=== PATIENT | female | born 1955 | race Caucasian/White ===

== ENCOUNTER → 2020-06-15 14:47 | Outpatient (CLI) | payer MEDICARE, OTHER, SELFPAY ==
--- NOTE | ~2020-06-15 | MM_ITS ---
EXAMINATION: MM screening radha BI w brian HISTORY: Screening mammogram TECHNIQUE: Craniocaudal and mediolateral oblique 3-D tomosynthesis images were obtained and synthetic 2-D images were generated. CAD analysis was submitted and interpreted. COMPARISON: 04/08/2019, 03/24/2018, 11/19/2016 bilateral digital screening mammogram examinations BREAST PARENCHYMAL COMPOSITION: There are scattered areas of fibroglandular density. FINDINGS: There is no evidence of suspicious mass, calcification, or architectural distortion to sugg est malignancy in either breast. There has been no suspicious interval change. IMPRESSION: 1. No mammographic evidence of malignancy. 2. Recommend routine screening mammography in one year. BI-RADS Category 1: Negative Reviewed, dictated and finalized at location A.
== END ==
PROVIDERS: PCP Family Medicine; Visit Provider Family Medicine
DX: Z12.31 Encounter for screening mammogram for malignant neoplasm of breast (principal)
CPT/HCPCS: 77063; 77067

== ENCOUNTER → 2020-06-28 09:45 | Outpatient (CLI) | payer MEDICARE, OTHER, SELFPAY ==
--- NOTE | ~2020-06-28 | XR_ITS ---
EXAMINATION: XR lumbar spine 2-3V EXAM DATE: 06/28/2020 10:13 INDICATION: Low back pain . TECHNIQUE: Lumber spine frontal, lateral, lateral L5-S1 projections for interpretation. There is no prior study for comparison. FINDINGS: There is 4 mm retrolisthesis L4 on L5, 3 mm retrolisthesis L3 on L4. There is mild to mode rate disc disease L1-L5, moderate at L5-S1. There is mild to moderate lower lumbar facet arthropathy. Sacrum, sacroiliac joints, sacral arcuate lines are intact. Some pelvic surgical clips. There are ch olecystectomy clips. Mild diffuse loss of vertebral body heights. Mild thoracolumbar curvature. IMPRESSION: Mild to moderate lumbar spondylosis. Reviewed, dictated and finalized at location B. EDURAL NURSE
== END ==
PROVIDERS: PCP Family Medicine; Visit Provider Family Medicine
DX: M47.816 Spondylosis without myelopathy or radiculopathy, lumbar region (principal)
CPT/HCPCS: 72100

== ENCOUNTER → 2021-02-27 16:09 | Outpatient (CLI) | payer MEDICARE, OTHER, SELFPAY ==
--- NOTE | ~2021-02-27 | XR_ITS ---
XR hand RT min 3V 02/27/2021 16:45 Indication: Right hand pain Procedure: 3 views right hand Comparison: 04/17/2015 Findings: There is moderate-severe polyarticular osteoarthritis of the interphalangeal joints and to a lesser degree the first MCP joint. No fracture or traumatic malalignment. The degenerative changes have progressed in the distal interphalangeal joints. Foreign bodies. 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 Reviewed, dictated and finalized at location A. Impression: 1: Progression of moderate-severe polyarticular osteoarthritis of the right rodríguez d, most advanced in the interphalangeal joints.
--- NOTE | ~2021-02-27 | XR_ITS ---
XR hand LT min 3V 02/27/2021 16:45 Indication: Left hand pain Procedure: 3 views left hand Comparison: No prior studies for comparison. Findings: There is moderate-severe polyarticular osteoarthritis primarily involving the interphalange al joints and to a lesser degree the first CMC and MCP joints. No acute fracture or traumatic malalig nment. No significant soft tissue abnormality. Impression: 1: Moderate-severe polyarticular osteoarthritis of the left hand. Reviewed, dictated and finalized at location A. Impression: 1: Moderate-severe polyarticular osteoarthritis of the left hand.
== END ==
PROVIDERS: PCP Physician Assistant; Visit Provider Physician Assistant
DX: M19.042 Primary osteoarthritis, left hand (principal); M19.041 Primary osteoarthritis, right hand
CPT/HCPCS: 73130

== ENCOUNTER 2021-05-11 01:58 | Day surgery (SDC) | payer MEDICARE, OTHER, SELFPAY ==
[2021-04-26 14:48] VITALS: BMI 27.8
[2021-05-11 07:45] VITALS: BP 132/68; PULSE 78; RESP 16; TEMP 36.1; O2SAT 100
[2021-05-11] MEDS: LACTATED RINGERS 1,000 ML 150 ML IV CONT (07:54)
--- NOTE | 2021-05-11 08:23 | WPDANESEPPF ---
Anes - Initial Pre Proc Eval Procedure: Operation Date: 05/11/21 08:30 Proposed Procedures p Colonoscopy - Michael Javier MD Date/Time: 05/11/21 08:23 Surgeon: Michael Javier MD Pre Op Diagnosis: change in bowel habits R19.4 Patient Data Age: 65 Gender: F Height: 1.57 m Weight: 69.3 kg Last Vital Signs Temp 96.9 F L 05/11/21 07:45 Pulse 78 05/11/21 07:45 Resp 16 05/11/21 07:45 BP 132/68 05/11/21 07:45 Pulse Ox 100 05/11/21 07:45 Allergies Allergy/AdvReac Type Severity Reaction Status Date / Time Penicillins Allergy Unknown Rash Verified 05/11/21 07:43 Home Medications Medication Instructions Recorded Confirmed Type omeprazole 20 mg capsule,delayed 20 mg PO DAILY #90 cap 01/03/20 05/11/21 Rx release travoprost 0.004 % eye drops 1 drop EACH EYE QPM #5 ml 01/03/20 05/11/21 Rx hydrochlorothiazide 12.5 mg tablet 12.5 mg PO DAILY #30 tablet 03/14/21 05/11/21 Rx alprazolam 0.25 mg tablet 0.25 mg PO DAILY PRN #15 tablet 04/11/21 05/11/21 Rx dorzolamide 1 drop EACH EYE BID 04/26/21 05/11/21 History irbesartan 150 mg PO DAILY 04/26/21 05/11/21 History sertraline 25 mg PO DAILY 04/26/21 05/11/21 History Patient hx anesthesia problems: none Family hx anesthesia problems: none PMFSH Past Medical History Medical History Alternating constipation and diarrhea CKD (chronic kidney disease), stage III Family history of melanoma Hypertensive chronic kidney disease with stage 1 through stage 4 chronic kidney disease, or unspecified chronic kidney disease Low kidney function Rectal bleeding Rectal pressure Skin lesions Social History Social History (Updated 04/24/21 @ 16:13 by Ramila Michele MA) Smoking status: Never smoker Second hand tobacco smoke exposure: No Alcohol intake: never Substance use: never Substance use type: does not use Living arrangements: with family Gender identity (if verbalized by the patient): Female Spiritual care concerns: No Anes - Eval Final PreProcedure Day of Procedure 05/11/21 08:23 Patient weight: overweight Heart: regular rate and rhythm Lungs: rales Airway: Mallampati scale class II Neurological: alert and oriented Last oral intake: >/= 8 hours ASA classification: III Emergent: no Anesthetic plan: proceed Anesthesia type and monitoring: general GIVS and standard monitoring Informed Consent: The patient's anesthetic plan and its attendant risks and benefits were discussed with the patient/family/POA. Questions were solicited and answers provided to the satisfaction of the patient/family/POA.
--- NOTE | 2021-05-11 08:33 | PM.HPGS ---
History of Present Illness History of Present Illness Consent: Risks, benefits, and alternatives have been discussed and questions answered. Patient agrees to proceed with procedure. Chief complaint: change in bowel habits R19.4 Narrative: Bernice Duque is a 65 year old female with alternating constipation and diarrhea, also rectal pressure (remote h/o rectocele repair), last colonoscopy 2017 Review of Systems Constitutional: Constitutional: Denies headache(s) and Denies weakness Eyes: Eyes: Denies blurry vision ENT: Reports Normal hearing present, Denies headache(s) and Denies neck pain Cardiovascular: Cardiovascular: Denies chest pain and Denies dyspnea Respiratory: Respiratory: Denies dyspnea Gastrointestinal: Gastrointestinal: Reports no additional gastrointestinal complaints Genitourinary: Genitourinary: Denies dysuria Musculoskeletal: Musculoskeletal: Denies neck pain Integumentary/Breasts: Skin/Breast: Denies dry skin Neurologic: Reports Normal hearing present, Denies headache(s) and Denies weakness Psychiatric: Psychiatric: Denies anxiety Endocrine: Endocrine: Denies change in body appearance Hematologic/Lymphatic: Hematologic/Lymphatic: Denies easy bleeding Allergic/Immunologic: Allergic/Immunologic: Denies urticaria PMFSH Past Medical History Medical History Alternating constipation and diarrhea CKD (chronic kidney disease), stage III Family history of melanoma Hypertensive chronic kidney disease with stage 1 through stage 4 chronic kidney disease, or unspecified chronic kidney disease Low kidney function Rectal bleeding Rectal pressure Skin lesions Social History Social History (Updated 04/24/21 @ 16:13 by Ramila Michele MA) Smoking status: Never smoker Second hand tobacco smoke exposure: No Alcohol intake: never Substance use: never Substance use type: does not use Living arrangements: with family Gender identity (if verbalized by the patient): Female Spiritual care concerns: No Meds Home Medications and Allergies Home Medications Medication Instructions Recorded Confirmed Type omeprazole 20 mg capsule,delayed 20 mg PO DAILY #90 cap 01/03/20 05/11/21 Rx release travoprost 0.004 % eye drops 1 drop EACH EYE QPM #5 ml 01/03/20 05/11/21 Rx hydrochlorothiazide 12.5 mg tablet 12.5 mg PO DAILY #30 tablet 03/14/21 05/11/21 Rx alprazolam 0.25 mg tablet 0.25 mg PO DAILY PRN #15 tablet 04/11/21 05/11/21 Rx dorzolamide 1 drop EACH EYE BID 04/26/21 05/11/21 History irbesartan 150 mg PO DAILY 04/26/21 05/11/21 History sertraline 25 mg PO DAILY 04/26/21 05/11/21 History Allergies Allergy/AdvReac Type Severity Reaction Status Date / Time Penicillins Allergy Unknown Rash Verified 05/11/21 07:43 Vital Signs Vital Signs - 24 hr 05/11/21 07:45 Temperature 96.9 F L Pulse Rate 78 Respiratory Rate 16 Blood Pressure 132/68 Pulse Oximetry 100 Exam Const: General: comfortable and no acute distress HENMT: General nose exam: Normal nares present Eyes: General: appearance normal, both eyes and all related structures Neck: Neck: no JVD Resp: Auscultation: clear to auscultation bilaterally Cardio: Rate: regular rate Rhythm: regular rhythm GI: Inspection: non-distended GI Palp: Yes Soft to palpation Skin: General skin exam: normal color Neuro: General: gait normal Speech: normal speech Extrem: General: normal to inspection Psych: Mental Status: mental status grossly normal Assessment and Plan Assessment and plan (1) Alternating constipation and diarrhea: Code(s): R19.8 - Other specified symptoms and signs involving the digestive system and abdomen Status: Acute Assessment and Plan: colonoscopy (2) Rectal pressure: Code(s): R19.8 - Other specified symptoms and signs involving the digestive system and abdomen Status: Acute
[2021-05-11 09:06] VITALS: BP 119/72; PULSE 63; RESP 22; O2SAT 100
[2021-05-11 09:10] VITALS: BP 125/72; PULSE 63; RESP 23; O2SAT 100
[2021-05-11 09:20] VITALS: BP 144/86; PULSE 56; RESP 22; O2SAT 100
== END 2021-05-11 09:23 | disposition home or self-care (01) ==
PROVIDERS: PCP Family Medicine; Visit Provider Internal Medicine Gastroenterology
PROC: 0DJD8ZZ Inspection of Lower Intestinal Tract, Via Natural or Artificial Opening Endoscopic (ICD-10-PCS; CPT 45378; principal; 2021-05-11 08:30)
DX: Z12.11 Encounter for screening for malignant neoplasm of colon (principal); K62.89 Other specified diseases of anus and rectum; K64.8 Other hemorrhoids; R19.8 Other specified symptoms and signs involving the digestive system and abdomen; R19.7 Diarrhea, unspecified; K59.00 Constipation, unspecified; I12.9 Hypertensive chronic kidney disease with stage 1 through stage 4 chronic kidney disease, or unspecified chronic kidney disease; N18.30 Chronic kidney disease, stage 3 unspecified
CPT/HCPCS: 45380; 88305; J2704; J7120

== ENCOUNTER → 2021-05-16 10:51 | Outpatient (CLI) | payer MEDICARE, OTHER, SELFPAY ==
--- NOTE | ~2021-05-16 | US_ITS ---
EXAMINATION: US soft tissue head and neck EXAM DATE: 05/16/2021 11:29 INDICATION: R59.0 - Localized enlarged lymph nodes. TECHNIQUE: Multiple grayscale and Doppler images of the neck, thyroid were obtained (by a technologis t who performed the scan) and subsequently reviewed. Correlation is made to neck CT 2010 FINDINGS: Largest lymph node identified is an the right internal jugular chain measuring 2.4 x 0.6 x 1.1 cm. 2 other smaller lymph nodes measured at 1.1 x 0.6, 1.0 x 0.5 cm. Thin echogenic regions within these, f atty richard. On the left the largest lymph node is 1.8 x 0.5 x 1.1 cm, another at 1.0 x 0.6 cm. Thyroid was also scanned and is normal in size. There is probable right thyroid lobe isoechoic nodule measuring 8 mm. This is category TR 3. IMPRESSION: 1. Mildly enlarged bilateral internal jugular chain lymph nodes, could be reactive given fatty richard. If these do not resolve clinically then recommend CT neck with contrast for further evaluation. 2. Small right thyroid lobe nodule not likely clinically significant. Reviewed, dictated and finalized at location B. IMPRESSION: 1. Mildly enlarged bilateral internal jugular chain lymph nodes, could be reac tive given fatty richard. If these do not resolve clinically then recommend CT nec k with contrast for further evaluation. 2. Small right thyroid lobe nodule not likely clinically significant.
== END ==
PROVIDERS: PCP Family Medicine; Visit Provider Nurse Practitioner Family
DX: R59.0 Localized enlarged lymph nodes (principal)
CPT/HCPCS: 76536

== ENCOUNTER → 2021-07-17 09:46 | Outpatient (CLI) | payer MEDICARE, OTHER, SELFPAY ==
[2021-07-17 17:55] LABS: SARS-CoV-2 RNA PCR Positive
== END ==
PROVIDERS: PCP Family Medicine; Visit Provider Nurse Practitioner Family
DX: U07.1 COVID-19 (principal)
CPT/HCPCS: C9803; U0003; U0005

== ENCOUNTER → 2021-08-09 15:05 | Outpatient (CLI) | payer MEDICARE, OTHER, SELFPAY ==
--- NOTE | ~2021-08-09 | MM_ITS ---
EXAMINATION: MM screening radha BI w brian HISTORY: Screening mammogram TECHNIQUE: Craniocaudal and mediolateral oblique 3-D tomosynthesis images were obtained and synthetic 2-D images were generated. CAD analysis was submitted and interpreted. COMPARISON: 06/15/2020, 04/08/2019, 03/24/2018 bilateral screening mammogram examinations BREAST PARENCHYMAL COMPOSITION: There are scattered areas of fibroglandular density. FINDINGS: There is no evidence of suspicious mass, calcification, or architectural distortion to sugg est malignancy in either breast. There has been no suspicious interval change. IMPRESSION: 1. No mammographic evidence of malignancy. 2. Recommend routine screening mammography in one year. BI-RADS Category 1: Negative Reviewed, dictated and finalized at location A. ANIC AND WELDER
== END ==
PROVIDERS: PCP Family Medicine; Visit Provider Family Medicine
DX: Z12.31 Encounter for screening mammogram for malignant neoplasm of breast (principal)
CPT/HCPCS: 77063; 77067

== ENCOUNTER → 2022-04-09 10:40 | Outpatient (CLI) | payer MEDICARE, OTHER, SELFPAY ==
--- NOTE | ~2022-04-09 | XR_ITS ---
EXAMINATION:XR_CERV2-3V_CR DATE: 04/09/2022 11:08 INDICATION: Cervical radiculopathy and neck pain TECHNIQUE: AP, lateral, and odontoid views of the cervical spine are provided. COMPARISON: 07/31/2015 FINDINGS: There is 1 mm retrolisthesis of C5 on C6. The odontoid is intact. No fracture is identified . There is unchanged moderate loss of intervertebral disc space height at C5-6 and C6-7. The vertebra l body heights are maintained. Small degenerative osteophytes project from the anterior endplates of multiple vertebral bodies. There is moderate facet and uncovertebral joint osteoarthritis of the lowe r cervical spine. Prevertebral soft tissues are normal. IMPRESSION: 1. Moderate cervical spondylosis without acute findings or significant interval change. Reviewed, dictated and finalized at location A.
== END ==
PROVIDERS: PCP Nurse Practitioner Family; Visit Provider Nurse Practitioner Family
DX: R51.9 Headache, unspecified (principal); M47.892 Other spondylosis, cervical region
CPT/HCPCS: 72040

== ENCOUNTER 2022-06-05 13:06 | Emergency (ER) | payer MEDICARE, OTHER, SELFPAY ==
--- NOTE | ~2022-06-05 | CT_ITS ---
EXAMINATION: CT abdomen pelvis wo con DATE: 06/05/2022 14:29 INDICATION: Left flank pain. TECHNIQUE: Computed tomography (CT) of the abdomen and pelvis was performed without intravenous contr ast. Automated exposure control and iterative reconstruction technique were employed. The dose-length product was 443.10 mGy-cm. COMPARISON: CT abdomen and pelvis 12/17/2010 FINDINGS: The visualized portions of the lung bases demonstrate mild atelectasis. No pleural effusion . The heart size is normal. No pericardial effusion. There is diffuse hepatic steatosis. There are ch anges of cholecystectomy. The spleen, pancreas, adrenal glands, and kidneys are normal. There is no u rolithiasis. There are no dilated loops of bowel. The appendix is normal. There are no pathologically enlarged lymph nodes. There is no free intraperitoneal fluid. There is a periumbilical hernia contai joey fat. There is severe osteoarthritis of the hips. There is severe lower lumbar spondylosis. IMPRESSION: 1. Periumbilical hernia containing fat. Reviewed, dictated and finalized at location A.
[2022-06-05 13:07] VITALS: BP 161/81; PULSE 72; RESP 16; TEMP 36.5; O2SAT 99
[2022-06-05 13:18] LABS: Basophils Percent Auto 0.6 % (0.2-1.2); Eosinophils Absolute Auto 0.2 K/mm3 (0-0.3); Eosinophils Percent Auto 2.5 % (0-4.4); Hematocrit 38.4 % (37.0-47.0); Hemoglobin 12.4 g/dL (12.0-15.0); Immature Granulocyte Absolute 0.02 K/mm3 (0.00-0.031); Immature Granulocyte Percent A 0.3 % (0-0.5); Lymphocytes Absolute Auto 1.88 K/mm3 (0.9-3.2); Lymphocytes Percent Auto 27.1 % (18.3-44.2); Mean Corpuscular HGB Conc 32.3 g/dl (32-36); Mean Corpuscular Hemoglobin 29.2 pg (26-34); Mean Corpuscular Volume 90.6 fl (80-100); Mean Platelet Volume 8.9 fl (7.4-10.4); Monocytes Absolute Auto 0.6 K/mm3 (0.1-0.6); Monocytes Percent Auto 8.8 % (2.6-8.5); Neutrophils Absolute Auto 4.2 K/mm3 (1.3-6.7); Neutrophils Percent Auto 60.7 % (45.5-73.1); Platelet Count Result 323 k/mm3 (150-375); Red Blood Count 4.24 M/mm3 (4.2-5.4); Red Cell Distribution Width 12.9 % (11.5-14.5); White Blood Count 6.9 K/mm3 (4.5-10.0)
[2022-06-05 13:27] LABS: Alanine Aminotransferase 26 U/L (6-35); Albumin Level 4.8 g/dL (3.5-5.1); Alkaline Phosphatase 102 U/L (38-126); Anion Gap 11 mmol/L (8-16); Aspartate Amino Transferase 33 U/L (14-36); Bilirubin,Total 0.5 mg/dL (0.2-1.3); Blood Urea Nitrogen 21 mg/dL (7-17); Calcium 9.4 mg/dL (8.4-10.2); Carbon Dioxide 26 mmol/L (22-30); Chloride 101 mmol/L (98-107); Estimated CRCL calculation 37 ml/min; Estimated Glomerular Filt Rate 45; Glucose 104 mg/dL (65-110); Lipase 94 U/L (23-300); Sodium 138 mmol/L (137-145)
[2022-06-05 13:29] LABS: Add Urine Microscopic? NO; Appearance Urine Clear (Clear); Bilirubin Urine Negative (Negative); Blood Urine Negative (Negative); Color Urine Straw (Yellow); Glucose Urine UA Negative (Negative); Ketones Urine Negative (Negative); Leukocyte Esterase Ur Negative LEU/UL (Negative); Nitrate Urine Negative (Negative); Protein Urine Negative (Negative); Specific Grav Ur 1.009 (1.001-1.035); Urobilinogen Urine Negative mg/dL (<2.0)
--- NOTE | 2022-06-05 13:58 | ED.ABDPAIN ---
HPI - Abdominal Pain General Chief Complaint: Abdominal Pain Stated Complaint: rectal pain Time Seen by Provider: 06/05/22 13:57 History of Present Illness HPI narrative: Patient is a 67-year-old female with a history of glaucoma, hypertension presenting with left flank pain. Patient states that she has been having discomfort in her lower abdomen as well as burning with urination for several days. She called her PCP earlier this week and a UA was obtained which showed no UTI. Patient states that she continues to have burning with urination as well as burning in her rectum. Today, she developed left flank pain that radiated to her left abdomen. States it was severe and associated with nausea. States that it comes and goes. Currently, she states she feels okay. She denies fevers, headache, chest pain, shortness of breath, cough, vomiting, diarrhea, leg swelling. Related Data Home Medications Medication Instructions Recorded Confirmed dorzolamide 2 % eye drops 1 drop ophthalmic (eye) BID 04/26/21 05/11/21 Allergies Allergy/AdvReac Type Severity Reaction Status Date / Time Penicillins Allergy Unknown Rash Verified 06/05/22 13:56 Review of Systems Review of Systems: All systems reviewed & are unremarkable except as noted in HPI and below PMFSH Past Medical History Medical History Alternating constipation and diarrhea CKD (chronic kidney disease), stage III Family history of melanoma Hypertensive chronic kidney disease with stage 1 through stage 4 chronic kidney disease, or unspecified chronic kidney disease Low kidney function Rectal bleeding Rectal pressure Skin lesions Social History Social History Smoking status: Never smoker Second hand tobacco smoke exposure: No Alcohol intake: never Substance use: never Substance use type: does not use Gender identity (if verbalized by the patient): Female Spiritual care concerns: No Exam Narrative: GENERAL: Well-appearing, well-nourished, and in no acute distress. HEAD: Normocephalic, atraumatic. EYES: PERRLA and EOMI. ENT: Nares clear, no rhinorrhea or epistaxis. Mucous membranes moist. NECK: Supple. CHEST: Clear to auscultation. No respiratory distress. HEART: Regular rate and rhythm. No murmur heard. Normal peripheral pulses. ABDOMEN: Soft, LLQ tenderness, normal active bowel sounds. EXTREMITIES: Normal range of motion. No edema. SKIN: Warm, dry, no rash. NEURO: No focal deficits. Alert and oriented x3. PSYCH: Normal mood and affect. Course Course Emergency Course: Patient is a 67-year-old female presenting with left flank pain and dysuria. Patient is hypertensive, otherwise vitals are within normal limits. Exam is remarkable for the above. Vaginal exam is unremarkable. Rectal exam with internal hemorrhoid. Discussed appropriate supportive care for hemorrhoids. CT abdomen pelvis shows no acute abnormalities. UA is unremarkable. Patient appears dry on labs. She received IV fluids while in the department. On reevaluation, the patient states that she still has mild pelvic bloating but has not had recurrence of the left-sided pain. Recommended that she follow up with her [employer] INVESTIGATOR for pelvic pain as well as her primary care provider. Strict return precautions were given. Patient voiced understanding and is agreeable with plan. Discharged in stable condition. Vital Signs Vital signs: Vital Signs Temperature 97.7 F 06/05/22 13:07 Pulse Rate 72 06/05/22 13:07 Respiratory Rate 16 06/05/22 13:07 Blood Pressure 161/81 H 06/05/22 13:07 Pulse Oximetry 99 06/05/22 13:07 Oxygen Delivery Room Air 06/05/22 13:07 Temperature 97.7 F 06/05/22 13:07 Pulse Rate 64 06/05/22 16:11 Respiratory Rate 18 06/05/22 16:11 Blood Pressure 145/72 H 06/05/22 16:11 Pulse Oximetry 100 06/05/22 16:11 Oxygen Delivery Room
[2022-06-05] MEDS: SODIUM CHLORIDE 0.9% IV 1,000 ML 999 ML IV CONT (14:31)
[2022-06-05 16:11] VITALS: BP 145/72; PULSE 64; RESP 18; O2SAT 100
== END 2022-06-05 16:13 | disposition home or self-care (01) ==
PROVIDERS: General Practice; Emergency Provider Emergency Medicine; PCP Family Medicine
DX: R10.30 Lower abdominal pain, unspecified (principal); R10.2 Pelvic and perineal pain; I12.9 Hypertensive chronic kidney disease with stage 1 through stage 4 chronic kidney disease, or unspecified chronic kidney disease; N18.30 Chronic kidney disease, stage 3 unspecified; H40.9 Unspecified glaucoma; K42.9 Umbilical hernia without obstruction or gangrene
CPT/HCPCS: 36415; 74176; 80053; 81003; 83690; 85025; 96360; 99284; J7030

== ENCOUNTER → 2022-09-16 08:42 | Outpatient (CLI) | payer MEDICARE, OTHER, SELFPAY ==
--- NOTE | ~2022-09-16 | MM_ITS ---
EXAMINATION: MM screening radha BI w brian HISTORY: Screening mammogram TECHNIQUE: Craniocaudal and mediolateral oblique 3-D tomosynthesis images were obtained and synthetic 2-D images were generated. CAD analysis was submitted and interpreted. COMPARISON: 08/09/2021, 06/15/2020, 04/08/2019 bilateral screening mammogram examinations BREAST PARENCHYMAL COMPOSITION: The breasts are almost entirely fatty. FINDINGS: There is no evidence of suspicious mass, calcification, or architectural distortion to sugg est malignancy in either breast. There has been no suspicious interval change. IMPRESSION: 1. No mammographic evidence of malignancy. 2. Recommend routine screening mammography in one year. BI-RADS Category 1: Negative Reviewed, dictated and finalized at location A. ER CARCASS
== END ==
PROVIDERS: PCP Family Medicine; Visit Provider Family Medicine
DX: Z12.31 Encounter for screening mammogram for malignant neoplasm of breast (principal)
CPT/HCPCS: 77063; 77067

== ENCOUNTER → 2023-05-27 10:25 | Outpatient (CLI) | payer MEDICARE, OTHER, SELFPAY ==
--- NOTE | ~2023-05-27 | XR_ITS ---
EXAMINATION: XR hip RT min 2V DATE: 05/27/2023 10:42 INDICATION: Right hip pain. TECHNIQUE: 2 views of right hip were obtained. COMPARISON: Right hip radiographs 04/17/2015 FINDINGS: Bone alignment is normal. No fracture. There is severe right hip osteoarthritis. Surgical c lips overlie right pelvis. IMPRESSION: 1. Severe right hip osteoarthritis. Reviewed, dictated and finalized at location E.
== END ==
PROVIDERS: PCP Family Medicine; Visit Provider Family Medicine
DX: M16.11 Unilateral primary osteoarthritis, right hip (principal)
CPT/HCPCS: 73502

== ENCOUNTER → 2023-06-02 12:12 | Outpatient (CLI) | payer MEDICARE, OTHER, SELFPAY ==
--- NOTE | ~2023-06-02 | DEXA_ITS ---
Bone Density Report Name: CELESTINO ROBERTO Age: 68 Sex: Female Ethnicity: White Date of : 1955 Indication: postmenopausal; screening for osteoporosis; hysterectomy; Referring Provider: Curly Smith Study: Bone densitometry was performed. Exam Date: June 02, 2023 Accession number: [id number] Bone Density: Region BMD T-score Z-score Classification AP Spine (L1-L4) 1.008 -0.4 1.7 Normal Femoral Neck (Left) 0.745 -0.9 0.8 Normal Total Hip (Left) 0.877 -0.5 0.9 Normal Femoral Neck (Right) 0.720 -1.2 0.6 Osteopenia Total Hip (Right) 0.787 -1.3 0.2 Osteopenia Total Hip Mean 0.832 -0.9 0.6 Normal World Health Organization criteria for BMD impression classify patients as: Normal (T-score at or above -1.0), Osteopenia (T-score between -1.0 and -2.5), or Osteoporosis (T-score at or below -2.5). 10-year Fracture Risk(1): Major Osteoporotic Fracture 8.8% Hip Fracture 0.9% Reported Risk Factors: [place] (), Neck BMD=0.720, BMI=27.8 (1) FRAX(R) Version 3.08. Fracture probability calculated for an untreated patient. Fracture probability may be lower if the patient has received treatment. Previous Exams: Region Exam Age BMD T-score BMD Change BMD Change Date g/cm2 vs Baseline vs Previous AP Spine(L1-L4) 06/02/2023 68 1.008 -0.4 0.042* 0.042* 05/21/2019 64 0.966 -0.7 Total Hip(Left) 06/02/2023 68 0.877 -0.5 -0.018 -0.018 05/21/2019 64 0.896 -0.4 Total Hip(Right) 06/02/2023 68 0.787 -1.3 -0.043* -0.043* 05/21/2019 64 0.830 -0.9 *Denotes significance at 95% confidence level, LSC for AP Spine = 0.022 g/cm2, LSC for Total Hip = 0.027 g/cm2 Clinical Information Provided by Patient: Has used the following medications: Vitamin D, Calcium, MTV Has the following medical conditions: Hysterectomy Patient maximum height was 62.5 Menopause Age: 35 Drinks caffeinated beverages Onset of menses at age 13 Number of children 3 Impression: The patient has low bone mass, based on the Right Total Hip T-score. The patient has an estimated ten-year risk of hip fracture of 0.9% and an estimated ten-year risk of major fracture of 8.8%, based on the WHO FRAX algorithm. The BMD for the Total Hip(Right) decreased, changing by -0.043 since the last DXA exam. Discussion: BONE DENSITY IS LOW AT ONE OR MORE SKELETAL SITES. This patient's lowest T-score is low at one or more skeletal
== END ==
PROVIDERS: PCP Family Medicine; Visit Provider Obstetrics & Gynecology
DX: Z12.31 Encounter for screening mammogram for malignant neoplasm of breast (principal); Z78.0 Asymptomatic menopausal state; M85.89 Other specified disorders of bone density and structure, multiple sites
CPT/HCPCS: 77080

== ENCOUNTER 2023-08-13 15:17 | Outpatient (CLI) | payer MEDICARE, OTHER, MEDICAID, SELFPAY ==
--- NOTE | ~2023-08-13 | CT_ITS ---
EXAMINATION: CT abdomen pelvis wo con DATE: 08/13/2023 15:54 INDICATION: Low back pain, dysuria, hematuria TECHNIQUE: Computed tomography (CT) of the abdomen and pelvis was performed without intravenous contr ast. The dose-length product (DLP) was 369.22 mGy-cm. Automated exposure control and iterative recons truction technique were employed. COMPARISON: 06/05/2022 FINDINGS: Minimal dependent atelectasis is present in the lung bases. The heart size is normal. Singh es of cholecystectomy are noted. The liver, spleen, pancreas, and adrenal glands are normal. The kidn eys are unremarkable. No stones are identified in the kidneys, ureters, or bladder. No hydronephrosis or hydroureter. No pathologically enlarged abdominal or pelvic lymph nodes are identified. No free i ntraperitoneal gas or evidence of bowel obstruction. There is advanced osteoarthritis of the right hi p. There is severe lumbar spondylosis at L5-S1. A small periumbilical hernia containing fat is again noted. IMPRESSION: 1. Severe lumbar spondylosis at L5-S1. Reviewed, dictated and finalized at location B. CHASER
== END 2023-08-13 15:18 | disposition home or self-care (01) ==
PROVIDERS: PCP Family Medicine; Visit Provider Family Medicine
DX: R31.9 Hematuria, unspecified (principal); R30.0 Dysuria; M43.06 Spondylolysis, lumbar region
CPT/HCPCS: 74176

== ENCOUNTER → 2023-09-19 10:31 | Outpatient (CLI) | payer MEDICARE, OTHER, MEDICAID, SELFPAY ==
--- NOTE | ~2023-09-19 | MM_ITS ---
EXAMINATION: MM screening [facility] BI w brian HISTORY: Screening mammogram TECHNIQUE: Craniocaudal and mediolateral oblique 3-D tomosynthesis images were obtained and synthetic 2-D images were generated. CAD analysis was submitted and interpreted. COMPARISON: 09/16/2022, 08/09/2021, 06/15/2020 BREAST PARENCHYMAL COMPOSITION: There are scattered areas of fibroglandular density. FINDINGS: No suspicious mass, calcification, or architectural distortion are identified in either katie ast to suggest malignancy. There has been no suspicious interval change. IMPRESSION: 1. No mammographic evidence of malignancy. 2. Recommend routine screening mammography in one year. BI-RADS Category 1: Negative Reviewed, dictated and finalized at location A. IST DANCER
== END ==
PROVIDERS: PCP Family Medicine; Visit Provider Obstetrics & Gynecology
DX: Z12.31 Encounter for screening mammogram for malignant neoplasm of breast (principal)
CPT/HCPCS: 77063; 77067

== ENCOUNTER 2024-06-03 12:44 | Outpatient (CLI) | payer MEDICARE, OTHER, MEDICAID, SELFPAY ==
[2024-06-03 13:12] LABS: Basophils Percent Auto 0.6 % (0.2-1.2); Eosinophils Absolute Auto 0.2 K/mm3 (0-0.3); Eosinophils Percent Auto 2.7 % (0-4.4); Hemoglobin 13.1 g/dL (12.0-15.0); Immature Granulocyte Absolute 0.02 K/mm3 (0.00-0.031); Immature Granulocyte Percent A 0.3 % (0-0.5); Lymphocytes Absolute Auto 2.12 K/mm3 (0.9-3.2); Lymphocytes Percent Auto 33.3 % (18.3-44.2); Mean Corpuscular HGB Conc 33.6 g/dl (32-36); Mean Corpuscular Hemoglobin 29.8 pg (26-34); Mean Corpuscular Volume 88.8 fl (80-100); Monocytes Absolute Auto 0.5 K/mm3 (0.1-0.6); Monocytes Percent Auto 8.5 % (2.6-8.5); Neutrophils Absolute Auto 3.5 K/mm3 (1.3-6.7); Neutrophils Percent Auto 54.6 % (45.5-73.1); Platelet Count Result 311 k/mm3 (150-375); Red Blood Count 4.39 M/mm3 (4.2-5.4); Red Cell Distribution Width 12.8 % (11.5-14.5); White Blood Count 6.4 K/mm3 (4.5-10.0)
[2024-06-03 13:14] LABS: Add Urine Microscopic? NO; Appearance Urine Clear (Clear); Bilirubin Urine Negative (Negative); Blood Urine Negative (Negative); Color Urine Yellow (Yellow); Glucose Urine UA Negative (Negative); Ketones Urine Negative (Negative); Leukocyte Esterase Ur Negative LEU/UL (Negative); Nitrate Urine Negative (Negative); Protein Urine Negative (Negative); Specific Grav Ur 1.012 (1.001-1.035); Urobilinogen Urine 0.2 mg/dL (<2.0); pH Urine 5.5 (5.0-9.0)
[2024-06-03 13:25] LABS: Anion Gap 8 mmol/L (4-12); Blood Urea Nitrogen 16 mg/dL (7-17); Calcium 9.3 mg/dL (8.4-10.2); Carbon Dioxide 26 mmol/L (22-30); Chloride 105 mmol/L (98-107); Estimated Glomerular Filt Rate 49; Glucose 117 mg/dL (65-110); Potassium 4.1 mmol/L (3.4-5.0); Sodium 139 mmol/L (137-145)
--- NOTE | 2024-06-03 13:25 | ECG_ITS ---
Test Date: 2024-06-03 13:30:11 Measurements Intervals Adams Rate: 71 P: 44 ND: 148 QRS: 41 QRSD: 85 T: 42 QT: 419 QTc: 456 Interpretive Statements SINUS RHYTHM WITHIN NORMAL LIMITS No previous ECG available for comparison Electronically Signed On 06-03-2024 16:12:23 CDT by Andrew Sanz M.D.
== END 2024-06-03 12:45 | disposition home or self-care (01) ==
PROVIDERS: PCP Family Medicine; Visit Provider Orthopaedic Surgery
DX: I12.9 Hypertensive chronic kidney disease with stage 1 through stage 4 chronic kidney disease, or unspecified chronic kidney disease (principal); N18.31 Chronic kidney disease, stage 3a; E53.8 Deficiency of other specified B group vitamins; N28.9 Disorder of kidney and ureter, unspecified; R53.83 Other fatigue
CPT/HCPCS: 36415; 80048; 81003; 85025; 93005

== ENCOUNTER 2024-07-14 11:08 | Outpatient (CLI) | payer MEDICARE, OTHER, MEDICAID, SELFPAY ==
[2024-07-14 13:41] LABS: Prothrombin Time 13.3 Seconds (11.1-14.7)
[2024-07-14 13:45] LABS: Albumin Level 4.6 g/dL (3.5-5.1)
[2024-07-14 14:05] LABS: Urine Cotinine NEGATIVE
[2024-07-14 14:41] LABS: MRSA (PCR) NOT DETECTED (NOT DETECTE)
[2024-07-14 21:06] LABS: Hemoglobin A1C 5.8 % (<5.7)
== END 2024-07-14 11:09 | disposition home or self-care (01) ==
LOC: ANHSURGERY 11:22
PROVIDERS: PCP Family Medicine; Visit Provider Orthopaedic Surgery
DX: M16.11 Unilateral primary osteoarthritis, right hip (principal); Z01.818 Encounter for other preprocedural examination
CPT/HCPCS: 80307; 82040; 83036; 85610; 85730; 87641

== ENCOUNTER 2024-07-28 01:33 | Day surgery (SDC) | payer MEDICARE, OTHER, MEDICAID, SELFPAY ==
[2024-07-14 11:51] VITALS: BP 136/68; PULSE 63; RESP 16; TEMP 36.6; O2SAT 100; BMI 27.6
--- NOTE | 2024-07-14 12:17 | PC.NURSE ---
Report to the Outpatient Waiting Room, entrance under the green pavilion located off [facility], at time __6:00AM on date ___07/28/24____. Planned Procedure Time: ___7:30AM .? Time changes happen often and if your time is changed the preop area will call you the afternoon before. - You and your visitor will be asked to self-screen and do not enter if you have any COVID symptoms. Please call surgeon if you need to reschedule. - A mask is optional within the hospital at this time. Patients may have clear liquids (water, carbonated beverages, clear teas, apple juice) until 3 hours prior to surgery with a maximum of 20 ounces. - No food from midnight until time of surgery and no smoking. This includes no chewing gum, candy or mints. Take only the following medications with a SIP of water on the morning of surgery: ___SERTRALINE, EYE DROPS. MAY TAKE ALPRAZOLAM NEEDED FOR ANXIETY. DO NOT STOP ANY OF YOUR OTHER PRESCRIPTION MEDICATIONS PRIOR TO SURGERY EXCEPT THE FOLLOWING Medications to discontinue per physician HOLD ALL VITAMINS/SUPPLEMENTS AND NSAIDS(IBUPROFEN, ALEVE) 7 DAYS PRE-OP PER DR KIM Date to take last dose 07/20/24 Please no make-up, nail divehi, hairspray, perfume, deodorant, or body powder the day of surgery.? No jewelry (including any body piercings) or valuables the day of surgery, leave them at home.? Please take a shower or bath the night before, or the morning of, surgery with an antibacterial soap.? Wear comfortable, loose fitting clothing.? - Jewelry must be removed prior to entering the operating room.? Rings and piercings that are not removed may be cut off. - The hospital will not accept responsibility for valuables.? - Please leave all valuables, including medications, at home the day of surgery. If you are going home after surgery, a licensed hole digger truck driver must drive you home.? - NO public transportation without another adult if you receive anesthesia. - We recommend that an adult stay with you for 24 hours following discharge. - We also recommend that you do not drive, make important decision, drink alcoholic beverages, or take any drugs that were not prescribed by your health care provider for at least 24 hours after your discharge time. Follow any additional instructions given to you from your surgeon. HIBICLENS SHOWER DAILY FOR 7 DAYS PRE-OP PER SURGEON. Telephone instructions given to ____PATIENT and asked if any additional questions and then verbalized understanding. Patient advised to call surgeon office or pre surgery nurse liaison [phone] if any additional questions.
[2024-07-28] VITALS (18 sets, daily range): BP systolic 108–162; BP diastolic 48–84; PULSE 60–89; RESP 10–20; TEMP 36.1–37.1; O2SAT 91–100; BMI 27.7
--- NOTE | ~2024-07-28 | XR_ITS ---
EXAMINATION: XR hip RT 1V DATE: 07/28/2024 10:58 INDICATION: Postoperative evaluation following right total hip arthroplasty TECHNIQUE: A couple anteroposterior views of the right hip were obtained. COMPARISON: 06/03/2024 FINDINGS: Interval placement of a noncemented right total hip arthroplasty which appears well seated in near an atomic alignment on the frontal projection. Expected subcutaneous gas in the postoperative bed. No f ractures identified. Again seen are surgical clips in the right hemipelvis. IMPRESSION: 1. Right total hip arthroplasty, negative for postoperative purposes. Reviewed, dictated and finalized at location A. O LUMITE INJECTOR
[2024-07-28] MEDS: LACTATED RINGERS 1,000 ML 30 ML IV CONT ×3 (06:15→10:48)
[2024-07-28] MEDS: ACETAMINOPHEN 500 MG TABLET 1000 MG PO (06:31)
[2024-07-28] MEDS: TRANEXAMIC ACID 1,000MG/ISO100 1,000 MG/100 ML BAG 200 MG IVPB (07:09)
--- NOTE | 2024-07-28 07:11 | P.PNAN_ITS ---
Anes - Initial Pre Proc Eval Procedure: Operation Date: 07/28/24 07:30 Proposed Procedures p Right Total Hip Arthroplasty - Hai Ledezma MD Date/Time: 07/28/24 07:11 Surgeon: Hai Ledezma MD Pre Op Diagnosis: Rt Hip DJD Patient Data Age: 69 Gender: F Height: 1.57 m Weight: 68.7 kg Last Vital Signs Temp 36.6 C 07/14/24 11:51 Pulse 63 07/14/24 11:51 Resp 16 07/14/24 11:51 BP 136/68 07/14/24 11:51 Pulse Ox 100 07/14/24 11:51 O2 Del Method Room Air 07/14/24 11:51 Allergies Allergy/AdvReac Type Severity Reaction Status Date / Time Penicillins Allergy Unknown MILD Verified 07/28/24 06:35 RASH/ITCHING Home Medications Medication Instructions Recorded Confirmed Type travoprost 0.004 % eye drops 1 drop ophthalmic (eye) QPM #5 mL 01/03/20 07/19/24 Rx (Travatan Z) dorzolamide 2 % eye drops 1 drop ophthalmic (eye) BID 04/26/21 07/19/24 History alprazolam 0.25 mg tablet (Xanax) 0.25 mg PO DAILY PRN anxiety #15 10/21/23 07/19/24 Rx tabs acetaminophen 500 mg capsule 1,000 mg PO Q6H PRN Pain 07/14/24 07/19/24 History ascorbic acid (vitamin C) 500 mg 500 mg PO DAILY 07/14/24 07/19/24 History capsule calcium 600 mg (as carbonate)-vit 1 tablet PO DAILY 07/14/24 07/19/24 History D3 20 mcg (800 unit) chewable tablet (Caltrate plus D) chlorhexidine gluconate 4 % 1 applic topical DAILY #237 mL 07/14/24 07/28/24 Rx topical liquid (Hibiclens) cyanocobalamin (vitamin B-12) 1,000 mcg PO DAILY 07/14/24 07/19/24 History 1,000 mcg capsule ibuprofen 200 mg tablet 200 mg PO Q6H PRN Pain 07/14/24 07/19/24 History irbesartan 150 mg tablet 150 mg PO QAM 07/14/24 07/19/24 History naproxen sodium 220 mg capsule 220 mg PO BID PRN Pain 07/14/24 07/19/24 History (Aleve) omeprazole 40 mg capsule,delayed 40 mg PO QAM 07/14/24 07/19/24 History release sertraline 25 mg tablet 25 mg PO QAM 07/14/24 07/28/24 History Patient hx anesthesia problems: none Family hx anesthesia problems: post op nausea/vomiting Results Review: All pre-operative results and documents have been reviewed as part of the pre- operative evaluation. [facility] Past Medical History Medical History Alternating constipation and diarrhea Arthritis CKD (chronic kidney disease), stage III CKD stage G3a/A1, GFR 45-59 and albumin creatinine ratio <30 mg/g Family history of melanoma Hair loss High blood pressure Hypertensive chronic kidney disease with stage 1 through stage 4 chronic kidney disease, or unspecified chronic kidney disease Kidney disease Low kidney function Osteopenia Rectal bleeding Rectal pressure Skin lesions Vertigo Wears glasses Surgical History Surgical History History of carpal tunnel surgery 2019 History of cholecystectomy 2015 History of hysterectomy 1988 Social History Social History Social History: Smoking status: Never smoker Second hand tobacco smoke exposure: No Alcohol intake: never Substance use: never Substance use type: does not use Lack of Transportation: No Lack of Food: Never True Current Housing: I Have Housing Concerned About Future Housing: No Difficulty Paying Gas/Electric Bills: No Difficulty Paying for Meds: No Currently Unemployed: YES Education: Decline to Answer Difficulty w/ Childcare or Family Care: No Living arrangements: with family Additional living arrangements comments: HUSB Occupation/Education: retired Gender identity (if verbalized by the patient): Female Sexual Orientation (if Verbalized by the Patient): Straight or Heterosexual Spiritual care concerns: No Anes - Eval Final PreProcedure Day of Procedure 07/28/24 07:11 Patient weight: overweight Heart: regular rate and rhythm Lungs: clear to auscultation Airway: Mallampati scale class 1 Neurological: alert and oriented Last oral intake: >/= 8 hours ASA classification: III Emergent: no Anesthetic plan: proceed Anesthesia type and monitoring: general ETT and standard monitoring Results Review: All pre-operative results and documents have been reviewed as part of the pre- operative evaluation. Informed Consent: The patient's anesthetic plan and its attendant risks and benefits were discussed with the patient/family/POA. Questions were solicited and answers provided to the satisfaction of the patient/family/POA.
--- NOTE | 2024-07-28 07:24 | WPDHPUPDATE1 ---
History and Physical Update Update Date/Time: 07/28/24 07:24 History and Physical has been reviewed, including an updated exam of the patient. There are NO changes in the patient's condition. Risks, benefits, and alternatives have been discussed and questions answered. Patient agrees to proceed with procedure.
[2024-07-28] MEDS: ceFAZolin 2 GM/D5W 50 ML 2 GM/50 ML BAG IVPB ×2 (07:39→17:10)
[2024-07-28] MEDS: SODIUM CHLORIDE 0.9% IV 37.7 ML, MORPHINE SULFATE INJ (*CRX) 2 MG, ROPivacaine HCL 1% 2... INFILTRATE (08:39)
[2024-07-28] MEDS: TRANEXAMIC ACID 1,000 MG/10 ML AMPUL 1000 MG IV PUSH (09:38)
--- NOTE | 2024-07-28 10:19 | P.OP_ITS ---
Procedure Note - Detailed Date of Procedure 07/28/24 Pre-op Diagnosis Rt Hip DJD Post-op Diagnosis Same Procedure Performed R WENDY Surgeon Hai Ledemza MD Anesthesia General Description of Procedure THE PATIENT WAS TAKEN TO THE OPERATING ROOM IN STABLE CONDITION AND WAS PLACED IN THE LATERAL DECUBITUS AND THE RIGHT LOWER EXTREMITY WAS PREPPED AND DRAPED IN THE STERILE FASHION. INCISION WAS MADE IN THE POSTERIOR LATERAL SIDE OF THE HIP, DOWN TO THE FASCIA LAYER. THE FASCIA WAS INCISED. THE HIP WAS EXPOSED. THE SHORT EXTERNAL ROTATORS WERE EXPOSED. THE SCIATIC NERVE WAS IDENTIFIED. INCISION WAS MADE THROUGH THE SHORT EXTERNAL ROTATORS AND THE CAPSULE OF THE HIP JOINT. THE HIP WAS DISLOCATED. THE FEMORAL NECK WAS IN VALGUS AND IT WAS A LONG NECK. AN OSTEOTOMY WAS MADE TO THE FEMORAL NECK ABOUT 3 CM PROXIMAL TO THE LESSER TROCHANTER. THE ACETABULUM WAS EXPOSED. THERE WAS SEVERE DJD SEEN. BE GINNING WITH A 44 REAMER THE ACETABULUM WAS REAMED TO 53 MM. A 53 MM TRIAL WAS PLACED IN 35 DEG OF ABDUCTION AND ANTEVERSION WAS IN ALIGNMENT WITH THE TRANS ACETABULAR LIGAMENT. THE FIT WAS EXCELLENT. THE TRIAL WAS REMOVED. A 54 MM BIOMET G7 COMPONENT WAS THEN TAPPED IN TO PLACE IN 35 DEG OF ABDUCTION AND ANTEVERSION IN ALIGNMENT WITH THE TRANSVERSE ACETABULAR LIGAMENT. THE FIT WAS EXCELLENT. THE ACETABULAR LINER WAS PLACED AND CHECKED FOR STABILITY. NEXT THE FEMUR WAS PREPARED WITH INITIAL CANAL FINDER THEN SEQUENTIAL BROACHING WITH A TAPERLOC HIP SYSTEM, UNTIL A 10 BROACH FIT WELL IN 15 OF ANTEVERSION. A +9 STANDARD OFFSET NECK WITH 36 MM HEAD TRIAL WAS PLACED. THE SHUCK TEST WAS EXCELLENT AND THE STABILITY IN FLEXION AND ROTATION WAS EXCELLENT. LEG LENGTHS WERE GROSSLY EQUAL. TRIALS WERE REMOVED. A BIOMET TAPERLOC 10 STEM WAS PLACED WITH A STANDARD OFFSET NECK. THE FIT WAS EXCELLENT IN 15 DEG OF ANTEVERSION. A +9 36 MM FEMORAL HEAD WAS PLACED. THE HIP WAS TRIALED AND THE STABILITY WAS EXCELLENT WERE THE LEG LENGTHS AND THE SHUCK TEST. THE WOUND WAS IRRIGATED WITH STERILE BETADINE AND WATER FOR 3 MIN. THEN WASHED AGAIN. THE SCIATIC NERVE WAS IDENTIFIED AGAIN. THE CAPSULE AND THE EXTERNAL ROTATORS WERE APPROXIMATED WITH NUMBER 1 VICRYL. THE FASCIA WITH No 2 QUIL AND THE SUB CUTANEOUS LAYER WITH 2-0 ABSORBABLE SUTURE AND A RUNNING 3-0 SUBCUTICULAR STITCH FOR THE SKIN. DERMABOND WAS PLACED AND STERILE DRESSING WAS APPLIED. PATIENT WAS PLACED BACK ON TO THE SUPINE POSITION AND WAS EXTUBATED Estimated Blood Loss -150.0 Complications No immediate complications Condition Stable Disposition PACU
[2024-07-28] MEDS: fentaNYL CITRATE INJ (*CRX) 100 MCG/2 ML VIAL 25 MCG IV PUSH ×4 (10:55→11:20)
--- NOTE | 2024-07-28 12:25 | SUR.PHASEI ---
Patient meets PACU discharge criteria, unit bed unavailable at this time. Patient placed in extended recovery status.
[2024-07-28] MEDS: KETOROLAC 15 MG/ML VIAL (*BKC) IV PUSH ×2 (14:30→17:10)
[2024-07-28] MEDS: ASPIRIN 325 MG ENTERIC TABLET PO ×2 (14:30→20:45)
[2024-07-28] MEDS: IRBESARTAN 150 MG TABLET PO (14:30)
[2024-07-28] MEDS: polyethylene glycoL 3350 17 GM POWD.PACK PO (14:30)
[2024-07-28] MEDS: FAMOTIDINE 20 MG TABLET PO ×2 (14:30→20:45)
[2024-07-28] MEDS: ONDANSETRON INJ 4 MG/2 ML VIAL IV PUSH (14:57)
[2024-07-28] MEDS: LATANOPROST 0.005% OP SOLN 2.5 ML BTL 1 DROP EACH EYE (17:11)
[2024-07-28] MEDS: DORZOLAMIDE HCL 2% OPHTH DROPS 1 DROP EACH EYE (17:11)
[2024-07-28] MEDS: SENNA/DOCUSATE SODIUM TABLET 2 TAB PO (17:11)
[2024-07-29] MEDS: ceFAZolin 2 GM/D5W 50 ML 2 GM/50 ML BAG IVPB ×2 (00:34→08:26)
[2024-07-29] MEDS: KETOROLAC 15 MG/ML VIAL (*BKC) IV PUSH ×3 (00:35→12:04)
[2024-07-29 03:17] VITALS: BP 113/47; PULSE 65; RESP 14; TEMP 36.2; O2SAT 97
[2024-07-29 07:36] LABS: Basophils Percent Auto 0.2 % (0.2-1.2); Eosinophils Absolute Auto 0.1 K/mm3 (0-0.3); Eosinophils Percent Auto 0.6 % (0-4.4); Hematocrit 28.7 % (37.0-47.0); Immature Granulocyte Absolute 0.03 K/mm3 (0.00-0.031); Immature Granulocyte Percent A 0.4 % (0-0.5); Lymphocytes Absolute Auto 1.54 K/mm3 (0.9-3.2); Mean Corpuscular HGB Conc 31.4 g/dl (32-36); Mean Corpuscular Volume 92.6 fl (80-100); Mean Platelet Volume 9.6 fl (7.4-10.4); Neutrophils Absolute Auto 5.9 K/mm3 (1.3-6.7); Neutrophils Percent Auto 68.8 % (45.5-73.1); Platelet Count Result 251 k/mm3 (150-375); Red Cell Distribution Width 13.1 % (11.5-14.5); White Blood Count 8.6 K/mm3 (4.5-10.0)
[2024-07-29 08:00] VITALS: BP 85/60; PULSE 65; RESP 20; TEMP 36.4; O2SAT 100
[2024-07-29] MEDS: FAMOTIDINE 20 MG TABLET PO (08:25)
[2024-07-29] MEDS: ASPIRIN 325 MG ENTERIC TABLET PO (08:25)
[2024-07-29] MEDS: SENNA/DOCUSATE SODIUM TABLET 2 TAB PO (08:25)
[2024-07-29] MEDS: oxyCODONE/ACETAMINOPHEN (*CRX) 10-325 MG TABLET 1 TAB PO (08:26)
[2024-07-29] MEDS: IRBESARTAN 150 MG TABLET PO (08:26)
[2024-07-29] MEDS: polyethylene glycoL 3350 17 GM POWD.PACK PO (08:26)
[2024-07-29] MEDS: SERTRALINE HCL 25 MG TABLET PO (08:26)
[2024-07-29] MEDS: DORZOLAMIDE HCL 2% OPHTH DROPS 1 DROP EACH EYE (08:27)
[2024-07-29 09:00] LABS: Anion Gap 3 mmol/L (4-12); Blood Urea Nitrogen 19 mg/dL (7-17); Calcium 8.4 mg/dL (8.4-10.2); Carbon Dioxide 28 mmol/L (22-30); Chloride 105 mmol/L (98-107); Estimated CRCL calculation 35 ml/min; Estimated Glomerular Filt Rate 44; Glucose 134 mg/dL (65-110); Sodium 136 mmol/L (137-145)
--- NOTE | 2024-07-29 09:44 | PM.PNORT ---
Progress Note: A&P Assessment and Plan (1) S/P total hip arthroplasty: Qualifiers: Laterality: right Qualified Code(s): Z96.641 - Presence of right artificial hip joint Code(s): Z96.649 - Presence of unspecified artificial hip joint Status: Acute Assessment and Plan: POD #1 : Right WENDY Continue PT/OT. WBAT. Walker. HIGH FALL RISK. Continue pain control. Ice Hip. Protect skin. DVT prophylaxis with Aspirin. SCDs. Incentive Spirometry Use reviewed. Monitor Dressing. Change prior to discharge. Bowel Regimen. Dispo: Home with Home Health pending progress with PT/OT Subjective Subjective Date/Time Seen: 07/29/24 09:44 Post Op day: 1 Interval history: POD #1: Right WENDY Patient doing well. Working with PT/OT at time of exam. No new concerns. Review of Systems Review of Systems: All systems reviewed & are unremarkable except as noted in HPI and below Constitutional: Constitutional: Denies chills, Denies fever(s), Denies headache(s), Denies lethargy and Reports weakness ENT: Denies headache(s) Cardiovascular: Cardiovascular: Denies chest pain, Denies diaphoresis, Denies lightheadedness, Denies palpitations, Denies dyspnea and Denies dyspnea on exertion Respiratory: Respiratory: Denies cough, Denies dyspnea and Denies dyspnea on exertion Gastrointestinal: Gastrointestinal: Denies constipation, Denies diarrhea, Denies nausea and Denies vomiting Genitourinary: Genitourinary: Reports urinary frequency, Denies dysuria and Denies urinary hesitancy Musculoskeletal: Musculoskeletal: Reports joint swelling (Right Hip ) and Reports limited range of motion (Right Hip due to recent surgery ) Neurologic: Denies headache(s) and Reports weakness Endocrine: Endocrine: Denies palpitations Exam Const: General: comfortable and no acute distress Resp: Effort & Inspection: normal respiratory effort Cardio: Rate: regular rate Rhythm: regular rhythm GI: Inspection: non-distended Skin: General skin exam: normal color Other: Incision right hip c/d/i. Surrounding tissue without redness/warmth. Mild swelling consistent with recent surgery. No drainage. Neuro: Cognition (Neuro): normal cognition Speech: normal speech Extrem: Right lower extremity: normal to inspection, normal capillary refill, hip/thigh Details: tenderness Location: of the hip (Thigh soft ) Location: laterally and anteriorly, swelling Location: at the hip, abnormal ROM (limited consistent with recent surgery ) Details: pain with active ROM during and pain with passive ROM during and other (Incision c/d/i. ); no deformity and no unusual warmth, knee Details: normal to inspection; no tenderness and no swelling, lower leg (Negative Yomaira's Sign ) Details: normal to inspection and no edema; no tenderness, ankle (+ankle dorsiflexion/plantarflexion) Details: normal to inspection and no edema; no tenderness, no swelling and no ecchymosis and foot Details: normal capillary refill, toes with normal ROM, vascular exam Details: dorsalis pedis pulse present and motor-sensory exam Details: light-touch normal; no tenderness Objective Data Vital Signs Vital Signs: Vital Signs - 24 hr 07/28/24 10:24 07/28/24 10:40 07/28/24 10:55 Temperature 36.3 C L Pulse Rate 60 81 76 Respiratory Rate 10 L 16 12 Blood Pressure 144/60 H 162/84 H 141/73 H Pulse Oximetry 100 100 98 Oxygen Delivery Simple Face Mask Simple Face Mask Simple Face Mask Oxygen Flow Rate 8 8 8 07/28/24 11:10 07/28/24 11:25 07/28/24 11:40 Temperature Pulse Rate 76 78 79 Respiratory Rate 16 18 14 Blood Pressure 157/50 H 150/68 H 130/59 L Pulse Oximetry 98 96 94 Oxygen Delivery Room Air Room Air Room Air Oxygen Flow Rate 07/28/24 11:55 07/28/24 12:10 07/28/24 12:25 Temperature Pulse Rate 89 82 80 Respiratory Rate 20 14 14 Blood Pressure 140/63 135/65 122/61 Pulse Oximetry 98 92 91 Oxygen Delivery Room Air Room Air Room Air Oxygen Flow Rate 07/28/24 12:55 07/28/24 13:25 07/28/24 14:27 Temperature Pulse Rate 83 79 Respiratory Rate 15 14 Blood Pressure 120/58 L 119/59 L Pulse Oximetry 94 93 Oxygen Delivery Room Air Room Air Room Air Oxygen Flow Rate 07/28/24 13:50 07/28/24 14:05 07/28/24 13:35 Temperature 36.1 C L 37.0 C Pulse Rate 78 76 Respiratory Rate 18 16 Blood Pressure 111/59 L 128/63 Pulse Oximetry 94 98 Oxygen Delivery Room Air Oxygen Flow Rate 07/28/24 15:12 07/28/24 14:35 07/28/24 16:35 Temperature 37.1 C 36.2 C L Pulse Rate 67 75 Respiratory Rate 16 18 Blood Pressure 108/54 L 109/57 L Pulse Oximetry 98 98 Oxygen Delivery Room Air Oxygen Flow Rate 07/28/24 19:17 07/28/24 23:17 07/29/24 03:17 Temperature 36.8 C 36.6 C 36.2 C L Pulse Rate 81 70 65 Respiratory Rate 16 14 14 Blood Pressure 144/53 H 118/48 L 113/47 L Pulse Oximetry 99 100 97 Oxygen Delivery Oxygen Flow Rate Intake/Output Intake/Output: Intake & Output 07/26/24 07/27/24 07/28/24 07/29/24 23:59 23:59 23:59 23:59 Intake Total 700 50 Balance 700 50 Meds/Results Medications: Active Medications Generic Name Dose Route Start Last Admin Trade Name Freq PRN Reason Stop Dose Admin Acetaminophen 500 mg 07/28/24 13:32 Acetaminophen 500 Mg Tablet PO Q6H PRN Pain Rated 1-3 Alprazolam 0.25 mg 07/28/24 13:32 Alprazolam (*Crx) 0.25 Mg Tablet PO DAILY PRN anxiety Aspirin 325 mg 07/28/24 13:32 07/29/24 08:25 Aspirin 325 Mg Enteric Tablet PO 325 mg Q12HR JEZ Administration Diazepam 5 mg 07/28/24 13:32 Diazepam (*Crx) 5 Mg Tablet PO Q6H PRN Anxiety/Muscle Spasm Diphenhydramine HCl 25 mg 07/28/24 13:32 Diphenhydramine Hcl Inj 50 Mg/Ml Vial IV PUSH Q6H PRN Itching Dorzolamide HCl 1 drop 07/28/24 17:00 07/29/24 08:27 Dorzolamide Hcl 2% Ophth Drops EACH EYE 1 drop BID JEZ Administration Famotidine 20 mg 07/28/24 13:32 07/29/24 08:25 Famotidine 20 Mg Tablet PO 20 mg Q12HR JEZ Administration Hydromorphone HCl 1 mg 07/28/24 13:32 Hydromorphone Hcl Inj (*Crx) 1 Mg/Ml Syr IV PUSH Q2H PRN Breakthrough Pain Rated 7-10 or NPO Hydromorphone HCl 0.5 mg 07/28/24 13:32 Hydromorphone Hcl Inj (*Crx) 1 Mg/Ml Syr IV PUSH Q2H PRN Breakthrough Pain Rated 4-6 or NPO Ibuprofen 800 mg in 200 mls @ 400 mls/hr 07/29/24 18:00 Caldolor 800 Mg/200 Ml IVPB Q6H PRN Breakthrough Pain Rated 1-3 or NPO Irbesartan 150 mg 07/28/24 13:32 07/29/24 08:26 Irbesartan 150 Mg Tablet PO 150 mg QAM JEZ Administration Ketorolac Tromethamine 15 mg 07/28/24 13:32 07/29/24 05:02 Ketorolac 15 Mg/Ml Vial (*Bkc) IV PUSH 07/29/24 12:01 15 mg Q6HR JEZ Administration Latanoprost 1 drop 07/28/24 18:00 07/28/24 17:11 Latanoprost 0.005% Op Soln 2.5 Ml Btl EACH EYE 1 drop QPM JEZ Administration Naloxone HCl 0.1 mg 07/28/24 13:32 Naloxone Hcl 0.4 Mg/Ml Vial IV PUSH Q2M PRN Opiate Reversal Ondansetron HCl 4 mg 07/28/24 13:32 07/28/24 14:57 Ondansetron Inj 4 Mg/2 Ml Vial IV PUSH 4 mg Q4H PRN Administration Nausea And Vomiting Oxycodone/Acetaminophen 1 tablet 07/28/24 13:32 Oxycodone/Acetaminophen (*Crx) 5-325 Mg Tablet PO Q4H PRN Pain Rated 4-6 Oxycodone/Acetaminophen 1 tab 07/28/24 13:32 07/29/24 08:26 Oxycodone/Acetaminophen (*Crx) 10-325 Mg Tablet PO 1 tab Q6H PRN Administration Pain Rated 7-10 Polyethylene Glycol 17 gm 07/28/24 13:32 07/29/24 08:26 Polyethylene Glycol 3350 17 Gm Powd.Pack PO 17 gm QAM JEZ Administration Senna/Docusate Sodium 2 tab 07/28/24 17:00 07/29/24 08:25 Senna/Docusate Sodium Tablet PO 2 tab BID JEZ Administration Sertraline HCl 25 mg 07/29/24 09:00 07/29/24 08:26 Sertraline Hcl 25 Mg Tablet PO 25 mg QAM JEZ Administration Radiology Results: ITS Impressions Hip X-Ray 07/28/24 11:27 IMPRESSION: 1. Right total hip arthroplasty, negative for postoperative purposes. Labs Labs: Laboratory Results - last 24 hr 07/29/24 06:39 WBC 8.6 RBC 3.10 L Hgb 9.0 L D Hct 28.7 L MCV 92.6 MCH 29.0 MCHC 31.4 L RDW 13.1 Plt Count 251 MPV 9.6 Immature Gran % (Auto) 0.4 Neut % (Auto) 68.8 Lymph % (Auto) 18.0 L [place] % (Auto) 12.0 H Eos % (Auto) 0.6 Baso % (Auto) 0.2 Lymph # (Auto) 1.54 [place] # (Auto) 1.0 H Eos # (Auto) 0.1 Baso # (Auto) 0.0 Abs Immat Gran (auto) 0.03 Absolute Neuts (auto) 5.9 Absolute Nucleated RBC 0.000 Nucleated RBC % 0.0 Sodium 136 L Potassium 5.0 Chloride 105 Carbon Dioxide 28 Anion Gap 3 L BUN 19 H Creatinine 1.20 H Estim Creat Clear Calc 35 Estimated GFR 44 L Glucose 134 H Calcium 8.4 Quality VTE Prophylaxis VTE prophylaxis: mechanical ordered
--- NOTE | 2024-07-29 13:51 | P.PNAN_ITS ---
Anes - Prog Note Post-Op Date/Time: 07/29/24 13:51 Cardiovascular status: normal Respiratory status: normal Airway patency: baseline Mental status: baseline Post-Op hydration status: normal Vital Signs: Last Vital Signs Temp 36.2 C L 07/29/24 03:17 Pulse 65 07/29/24 03:17 Resp 14 07/29/24 03:17 BP 113/47 L 07/29/24 03:17 Pulse Ox 97 07/29/24 03:17 O2 Del Method Room Air 07/29/24 08:25 O2 Flow Rate 8 07/28/24 10:55 Pain Score (VAS): 0 I/O: Intake & Output 07/28/24 07/29/24 07/29/24 23:59 07:59 15:59 Intake Total 50 50 50 Balance 50 50 50 Laboratory Tests 07/29/24 06:39 07/29/24 06:39 07/29/24 06:39 WBC 8.6 RBC 3.10 L Hgb 9.0 L D Hct 28.7 L MCV 92.6 MCH 29.0 MCHC 31.4 L RDW 13.1 Plt Count 251 MPV 9.6 Immature Gran % (Auto) 0.4 Neut % (Auto) 68.8 Lymph % (Auto) 18.0 L [place] % (Auto) 12.0 H Eos % (Auto) 0.6 Baso % (Auto) 0.2 Lymph # (Auto) 1.54 [place] # (Auto) 1.0 H Eos # (Auto) 0.1 Baso # (Auto) 0.0 Abs Immat Gran (auto) 0.03 Absolute Neuts (auto) 5.9 Absolute Nucleated RBC 0.000 Nucleated RBC % 0.0 Sodium 136 L Potassium 5.0 Chloride 105 Carbon Dioxide 28 Anion Gap 3 L BUN 19 H Creatinine 1.20 H Estim Creat Clear Calc 35 Estimated GFR 44 L Glucose 134 H Calcium 8.4 Post-procedural complaints: none Patient Feedback: Patient satisfied with anesthetic care.
[2024-07-29 14:00] VITALS: BP 100/58; PULSE 66; RESP 20; TEMP 36.4; O2SAT 100
--- NOTE | 2024-07-29 14:18 | PM.DS ---
DS: Admitting Diagnosis Discharge Date 07/29/2024 Admitting Diagnosis Right Hip DJD DS: Discharge Diagnosis Discharge Diagnosis (1) S/P total hip arthroplasty: Qualifiers: Laterality: right Qualified Code(s): Z96.641 - Presence of right artificial hip joint Code(s): Z96.649 - Presence of unspecified artificial hip joint Status: Acute Assessment and Plan: POD #1 : Right WENDY Continue PT/OT. WBAT. Walker. HIGH FALL RISK. Continue pain control. Ice Hip. Protect skin. DVT prophylaxis with Aspirin. SCDs. Incentive Spirometry Use reviewed. Monitor Dressing. Change prior to discharge. Bowel Regimen. Dispo: Home with Home Health pending progress with PT/OT DS: Summary Hospital Course Reason for hospitalization: Right WENDY Hospital Course: 69 year old female admitted s/p Right WENDY for postoperative medical management, pain control and mobilization with PT/OT. Patient progressed well with PT/OT. Pain and vitals remained stable throughout. The patient has been cleared to be discharged home with home health at this time. All discharge care instructions reviewed at depth. New medications reviewed. Follow up planned for 3 weeks in the outpatient orthopedic clinic with Dr. Ledezma. Dr. Ledezma in agreement with safe discharge at this time. Status at Discharge Functional status at discharge: uses cane/walker Overall status at discharge: patient is progressing back to baseline Time Spent with Patient Time attestation: Total time spent providing and/or coordinating discharge services: Time spent: Less than 30 minutes Exam Const: General: comfortable and no acute distress Resp: Effort & Inspection: normal respiratory effort Cardio: Rate: regular rate Rhythm: regular rhythm GI: Inspection: non-distended Skin: General skin exam: normal color Other: Incision right hip c/d/i. Surrounding tissue without redness/warmth. Mild swelling consistent with recent surgery. No drainage. Neuro: Cognition (Neuro): normal cognition Speech: normal speech Extrem: Right lower extremity: normal to inspection, normal capillary refill, hip/thigh Details: tenderness Location: of the hip (Thigh soft ) Location: laterally and anteriorly, swelling Location: at the hip, abnormal ROM (limited consistent with recent surgery ) Details: pain with active ROM during and pain with passive ROM during and other (Incision c/d/i. ); no deformity and no unusual warmth, knee Details: normal to inspection; no tenderness and no swelling, lower leg (Negative Yomaira's Sign ) Details: normal to inspection and no edema; no tenderness, ankle (+ankle dorsiflexion/plantarflexion) Details: normal to inspection and no edema; no tenderness, no swelling and no ecchymosis and foot Details: normal capillary refill, toes with normal ROM, vascular exam Details: dorsalis pedis pulse present and motor-sensory exam Details: light-touch normal; no tenderness DS: Data Data Completed and Pending Labs on day of discharge: Labs from last 24 hours 07/29/24 06:39 WBC 8.6 RBC 3.10 L Hgb 9.0 L D Hct 28.7 L MCV 92.6 MCH 29.0 MCHC 31.4 L RDW 13.1 Plt Count 251 MPV 9.6 Immature Gran % (Auto) 0.4 Neut % (Auto) 68.8 Lymph % (Auto) 18.[address] % (Auto) 12.0 H Eos % (Auto) 0.6 Baso % (Auto) 0.2 Lymph # (Auto) 1.54 [place] # (Auto) 1.0 H Eos # (Auto) 0.1 Baso # (Auto) 0.0 Abs Immat Gran (auto) 0.03 Absolute Neuts (auto) 5.9 Absolute Nucleated RBC 0.000 Nucleated RBC % 0.0 Sodium 136 L Potassium 5.0 Chloride 105 Carbon Dioxide 28 Anion Gap 3 L BUN 19 H Creatinine 1.20 H Estim Creat Clear Calc 35 Estimated GFR 44 L Glucose 134 H Calcium 8.4 Discharge Plan Discharge Patient Disposition: Home Health Service Discharge Instructions: Per Care coordination: [facility] ([phone]) has been arranged for physical and occupational therapy. They will call you regarding your first visit. Post Op Total Hip Replacement Instructions Dr. Hai Ledezma [phone] Your dressing will be changed prior to your discharge. You will be sent home with one additional dressing to be changed on post op day 7 by the home health RN. You may remove the dressing on post op day 14. Your incision was closed with dermabond, allow the dermabond to fall off naturally once your dressing is removed. Do not pull at the dermabond or disrupt incision healing. You may shower with your dressing but do not submerge in a bath tub. Do not drive or operate machinery until you are released by Dr. Ledezma. Do not walk without a walker for any reason until you are released by Dr. Ledezma. Continue to apply ice to the hip intermittently for additional pain relief. Protect your skin with a towel or pillow case. Continue to follow strict total hip replacement precautions. Your first post op appointment was sent to you via mail preoperatively. If you have any questions or are unable to make your appointment, please contact our office for scheduling questions. Your medications have been sent to your pharmacy. You have been sent home with pain medication. Please cigar packer and picker an over the counter stool softener to prevent constipation due to narcotic use. Please keep this in mind during your postoperative recovery. If you are not experiencing regular bowel movements, please contact our office for further instructions. Please contact our office with any questions/concerns regarding your hip at [phone]. Patient Instructions: Antibiotic Form Stand Alone Forms: General Discharge Information Follow-up/Referrals: Hai Ledezma MD [Physician] - Keep Reg. Scheduled Appt. Discharge Medications: New oxycodone-acetaminophen 5-325 mg Tablet 1 - 2 tablet PO Q4-6H PRN (Reason: pain) Qty: 40 0RF aspirin 325 mg Tablet,Delayed Release (Dr/Ec) 325 mg PO Q12HR 28 Days Qty: 56 0RF Continued travoprost [Travatan Z] 0.004 % drops 1 drop EACH EYE QPM Qty: 5 0RF alprazolam [Xanax] 0.25 mg tablet 0.25 mg PO DAILY PRN (Reason: anxiety) Qty: 15 0RF dorzolamide 2 % drops 1 drop EACH EYE BID omeprazole 40 mg capsule,delayed release(DR/EC) 40 mg PO QAM sertraline 25 mg tablet 25 mg PO QAM Rx Instructions: TAKE 1 TABLET BY MOUTH EVERY DAY irbesartan 150 mg tablet 150 mg PO QAM Rx Instructions: TAKE 1 TABLET BY MOUTH DAILY acetaminophen [Tylenol Extra Strength] 500 mg Capsule 1,000 mg PO Q6H PRN (Reason: Pain) Caltrate 600 plus D 600 mg-20 mcg (800 unit) Tablet,Chewable 1 tablet PO DAILY ascorbic acid (vitamin C) 500 mg Capsule 500 mg PO DAILY cyanocobalamin (vitamin B-12) 1,000 mcg Capsule 1,000 mcg PO DAILY Held ibuprofen 200 mg Tablet 200 mg PO Q6H PRN (Reason: Pain) Hold Instructions: Resume on 08/26/24. naproxen sodium [Aleve] 220 mg Capsule 220 mg PO BID PRN (Reason: Pain) Hold Instructions: Resume on 08/26/24. Discontinued chlorhexidine gluconate [Hibiclens] 4 % liquid 1 applic topical DAILY Qty: 237 0RF Rx Instructions: cleanse operative extremity every day for 7 days prior to procedure Quality VTE Prophylaxis VTE prophylaxis: mechanical ordered
== END 2024-07-29 15:00 | disposition home health service (06) ==
LOC: ANHSURGERY 05:51 → ANH3MEDSUR 07-29 08:29 → ANHSURGERY 07-29 08:41 → ANH3MEDSUR 07-29 09:47
PROVIDERS: PCP Family Medicine; Visit Provider Orthopaedic Surgery
PROC: (CPT 27130; principal; 2024-07-28 07:30)
DX: M16.11 Unilateral primary osteoarthritis, right hip (principal); I12.9 Hypertensive chronic kidney disease with stage 1 through stage 4 chronic kidney disease, or unspecified chronic kidney disease; N18.31 Chronic kidney disease, stage 3a; M85.88 Other specified disorders of bone density and structure, other site; Z79.1 Long term (current) use of non-steroidal anti-inflammatories (NSAID); Z98.890 Other specified postprocedural states; Z90.49 Acquired absence of other specified parts of digestive tract; Z84.0 Family history of diseases of the skin and subcutaneous tissue
CPT/HCPCS: 27130; 36415; 73501; 80048; 85025; 86850; 86900; 86901; 97110; 97116; 97161; 97165; 97530; 97535; A9270; C1713; C1776; J0171; J0690; J1100; J1171; J1885; J2270; J2405; J2704; J2795; J3010; J7120